=== PATIENT | female | born 1980 | race Caucasian/White ===

== ENCOUNTER 2016-12-11 14:20 | Inpatient (IN) | payer OTHER ==
[~2016-12-11 14:20] MED LIST: DHA PRENATAL200 MG PO; IBUPROFEN800 MG PO; PRENAPLUS TABL1 EACH PO; PRENATAL1 EACH PO; TRIPNIP TOP
[2016-12-11 15:24] LABS: BASO % 0.1 % (0-2); EOS % 0.2 % (0-7); HCT-HEMATOCRIT 34.7 % (34.0-49.0); HGB-HEMOGLOBIN 12.2 gm/dl (12.0-15.5); IMMATURE GRANULOCYTES ABSOLUTE 0.01 tho/cmm (0-0.03); IMMATURE GRANULOCYTES PERCENT 0.1 % (0-0.3); LYMPH ABSOLUTE COUNT 1.5 tho/cmm (0.8-4.5); MCH (MEAN CORPUSCULAR HGB) 32.5 pg (28.0-32.0); MCHC MEAN CORPUSCULAR HGB CONC 35.2 % (32.0-36.0); MCV (MEAN CELL VOLUME) 92.5 fl (82.0-96.0); MEAN PLATELET VOLUME 12.3 cmc (9.4-12.4); MONOCYTE ABSOLUTE COUNT 0.6 tho/cmm (0.0-1.2); NEUTROPHIL ABSOLUTE COUNT 7.2 tho/cmm (1.6-8.0); NEUTROPHIL-AUTOMATED 7.2 tho/cmm (1.6-8.0); NEUTROPHILS % 77.6 % (40-80); PLATELET COUNT 116 tho/cmm (150-450); RED BLOOD COUNT 3.75 mil/cmm (4.00-5.20); RED CELL DISTRIBUTION WIDTH 13.2 % (12.4-16.4); WHITE BLOOD COUNT 9.2 tho/cmm (4.0-10.0)
[2016-12-12 14:01] LABS: BASO % 0.1 % (0-2); EOS % 0.5 % (0-7); HCT-HEMATOCRIT 33.1 % (34.0-49.0); HGB-HEMOGLOBIN 11.5 gm/dl (12.0-15.5); IMMATURE GRANULOCYTES ABSOLUTE 0.02 tho/cmm (0-0.03); IMMATURE GRANULOCYTES PERCENT 0.2 % (0-0.3); LYMPH % 17.8 % (20-45); LYMPH ABSOLUTE COUNT 1.6 tho/cmm (0.8-4.5); MCH (MEAN CORPUSCULAR HGB) 32.4 pg (28.0-32.0); MCHC MEAN CORPUSCULAR HGB CONC 34.7 % (32.0-36.0); MCV (MEAN CELL VOLUME) 93.2 fl (82.0-96.0); MEAN PLATELET VOLUME 11.9 cmc (9.4-12.4); MONO % 6.8 % (0-12); MONOCYTE ABSOLUTE COUNT 0.6 tho/cmm (0.0-1.2); NEUTROPHIL ABSOLUTE COUNT 6.5 tho/cmm (1.6-8.0); NEUTROPHIL-AUTOMATED 6.5 tho/cmm (1.6-8.0); NEUTROPHILS % 74.6 % (40-80); PLATELET COUNT 120 tho/cmm (150-450); RED BLOOD COUNT 3.55 mil/cmm (4.00-5.20); RED CELL DISTRIBUTION WIDTH 13.2 % (12.4-16.4); WHITE BLOOD COUNT 8.7 tho/cmm (4.0-10.0)
[2016-12-12] MEDS ORDERED: IBUPROFEN800 M1 PO (20:42)
== END 2016-12-13 11:40 | DRG 775 ==
LOC: LDR 14:20 → OBGF 12-12 03:14
PROVIDERS: ADMIT Advanced Practice Midwife
PROC: 10907ZC Drainage of Amniotic Fluid, Therapeutic from Products of Conception, Via Natural or Artificial Opening (ICD-10-PCS; 2016-12-11)
PROC: 10E0XZZ Delivery of Products of Conception, External Approach (ICD-10-PCS; principal; 2016-12-12)
DX: O99.12 Other diseases of the blood and blood-forming organs and certain disorders involving the immune mechanism complicating childbirth (principal); D69.6 Thrombocytopenia, unspecified; Z3A.39 39 weeks gestation of pregnancy; Z37.0 Single live birth; O99.284 Endocrine, nutritional and metabolic diseases complicating childbirth; E03.9 Hypothyroidism, unspecified; O87.4 Varicose veins of lower extremity in the puerperium; O70.0 First degree perineal laceration during delivery
CPT/HCPCS: J2590